=== PATIENT | male | born 1990 | race Hispanic/Latino ===

== ENCOUNTER 2022-03-15 18:36 | Emergency (ER) | payer SELFPAY ==
[~2022-03-15] VITALS: Ht 180.3 cm; Wt 109.1 kg
[2022-03-15] MEDS ORDERED: NAPROXEN500 MG PO (19:48)
[2022-03-15 20:08] VITALS: BP 137/91
== END 2022-03-15 20:09 | disposition home or self-care (01) | DRG 563 ==
LOC: EDBD 18:36 → ED 18:36
DX: S43.401A Unspecified sprain of right shoulder joint, initial encounter (principal); Y93.43 Activity, gymnastics; Y93.89 Activity, other specified; Y92.009 Unspecified place in unspecified non-institutional (private) residence as the place of occurrence of the external cause